=== PATIENT | female | born 1950 | race Caucasian/White ===

== ENCOUNTER 2018-01-13 08:37 | Day surgery (SDC) | payer OTHER ==
[~2018-01-13] VITALS: Ht 167.6 cm; Wt 63.6 kg
[2018-01-13] VITALS (7 sets, daily range): BP systolic 136–166; BP diastolic 77–101
[~2018-01-13 08:37] MED LIST: LIDOcaine 1%/PF (10mg/ml) 5ml vial ONE
[2018-01-13] MEDS ORDERED: NYST1000 PO (09:21)
[2018-01-13] MEDS ORDERED: POTA10CA44 PO (09:21)
[2018-01-13] MEDS ORDERED: CARV-50 PO (09:21)
[2018-01-13] MEDS ORDERED: INSU100C10 SQ (09:21)
[2018-01-13] MEDS ORDERED: HEPA100D36 SQ (09:21)
[2018-01-13] MEDS ORDERED: ASPI-1264 PO (09:21)
[2018-01-13] MEDS ORDERED: ondansetron 4mg rapidly disintigrating tab PO ONE (09:55)
== END 2018-01-13 10:55 ==
LOC: SSTAY O 08:37
PROVIDERS: ATTEND Radiology Diagnostic Radiology
DX: Z45.2 Encounter for adjustment and management of vascular access device (principal); E11.22 Type 2 diabetes mellitus with diabetic chronic kidney disease; N18.9 Chronic kidney disease, unspecified; Z88.0 Allergy status to penicillin; Z88.1 Allergy status to other antibiotic agents; Z88.2 Allergy status to sulfonamides; Z88.8 Allergy status to other drugs, medicaments and biological substances
CPT/HCPCS: 36590; A6257; A6449; J2001